=== PATIENT | female | born 1990 | race African-American/Black ===

== ENCOUNTER 2018-01-23 11:01 | Inpatient (IN) | payer BC ==
[2018-01-23] MEDS ORDERED: Sodium Chloride 0.9% 2.5 ML Syringe FLUSH PRN ×2 (12:22→17:15)
[2018-01-23] MEDS ORDERED: Misoprostol 200 MCG Tab PO PRN (12:22)
[2018-01-23] MEDS ORDERED: Carboprost Tromethamine 250 MCG/1 ML Amp IM PRN (12:22)
[2018-01-23] MEDS ORDERED: Methylergonovine 0.2 MG/1 ML Amp IM PRN (12:22)
[2018-01-23] MEDS ORDERED: Lidocaine 1% 50 ML MDV INJECT PRN (12:22)
[2018-01-23] MEDS ORDERED: Butorphanol 1 MG/ML SDV IVPUSH PRN (12:22)
[2018-01-23] MEDS ORDERED: Nalbuphine 10 MG/ML 10 ML MDV IVPUSH PRN (12:22)
[2018-01-23] MEDS ORDERED: Water For Irrigation,Sterile 1,000 ML Container IRR PRN (12:22)
[2018-01-23] MEDS ORDERED: Tranexamic Acid 1,000 MG in Sodium Chloride 0.9% 100 ML IV PRN (12:22)
[2018-01-23] MEDS ORDERED: Sodium Chloride 0.9% 10 ML Syringe FLUSH PRN ×2 (12:22→17:15)
[2018-01-23] MEDS ORDERED: Lactated Ringers 1,000 ML IV SCH ×3 (12:30→18:15)
[2018-01-23] MEDS ORDERED: Oxytocin/0.9 % Sodium Chloride 30 UNIT/500 ML BAG IV SCH ×2 (12:30→17:15)
--- NOTE | 2018-01-23 13:56 | PCM.LDHP ---
L&D History of Present Illness - General Date of Service: 01/23/18 Admit Problem/Dx: Patient Status Order with Admit Dx/Problem 01/23/18 12:22 Patient Status [ADT] Routine Admission Diagnosis/Problem Admission Diagnosis/Problem Planned Source of Information: Patient History Limitations: Reports: No Limitations - History of Present Illness Improves with: Reports: None Worsens with: Reports: None Associated Symptoms: Reports: N - Related Data Allergies/Adverse Reactions: Allergies Allergy/AdvReac Type Severity Reaction Status Date / Time No Known Allergies Allergy Verified 01/23/18 11:36 Home Medications: Home Meds Pnv No.95/Ferrous Fum/Folic AC [ Multivitamin Tablet] 1 each PO DAILY [History] Past Medical History - Past Health History Medical/Surgical History: Denies 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 OB/BYN History: delivered 03/31/2016 Psychiatric History: Reports: Anxiety, Depression - Infectious Disease History Infectious Disease History: Reports: Chicken Pox Social & Family History - Family History HEENT: Reports: None Cardiac: Reports: Hypertension OBGYN: Reports: None Musculoskeletal: Reports: None Neurological: Reports: None Endocrine/Metabolic: Reports: Diabetes, type II - Tobacco Use Smoking Status *Q: Never Smoker Second Hand Smoke Exposure: No - Caffeine Use Caffeine Use: Reports: None - Recreational Drug Use Recreational Drug Use: No H&P Review of Systems - Review of Systems: Review Of Systems: See Below General: Reports: No Symptoms HEENT: Reports: No Symptoms Pulmonary: Reports: No Symptoms Cardiovascular: Reports: No Symptoms Gastrointestinal: Reports: No Symptoms Genitourinary: Reports: No Symptoms Musculoskeletal: Reports: No Symptoms Skin: Reports: No Symptoms Psychiatric: Reports: No Symptoms Neurological: Reports: No Symptoms Hematologic/Lymphatic: Reports: No Symptoms Immunologic: Reports: No Symptoms L&D Exam - Exam Exam: See Below - Vital Signs Weight: 92.533 kg - OB Specific Contraction Intensity: Moderate Movement: Active Heart Tones: Present Presentation: Vertex - Valentine Score Valentine Score Cervix Position: Midposition Valentine Score Consistency: Medium Valentine Score Effacement: 51-70% Valentine Score Dilation: 3-4 cm Valentine Score Infant's Station: -2 Valentine Score Total: 7 - Exam General: Alert, Oriented HEENT: PERRLA, Conjunctiva Clear, EACs Clear, EOMI, Hearing Intact, Mucosa Moist & [place], Nares Patent, Normal Nasal Septum, Posterior Pharynx Clear, TMs Clear Neck: Supple, Trachea Midline Lungs: Clear to Auscultation, Normal Respiratory Effort Cardiovascular: Regular Rate, Regular Rhythm GI/Abdominal Exam: Normal Bowel Sounds, Soft, Non-Tender, No Organomegaly, No Distention, No Abnormal Bruit, No Mass, Pelvis Stable Rectal Exam: Normal Exam, Normal Rectal Tone Genitourinary: Normal external exam, Normal bimanual exam, Normal speculum exam Back Exam: Normal Inspection, Full Range of Motion Extremities: Normal Inspection, Normal Range of Motion, Non-Tender, No Pedal Edema, Normal Capillary Refill Skin: Warm, Dry, Intact Neurological: Cranial Nerves Intact, Reflexes Equal Bilateral Psychiatric: Alert, Normal Affect, Normal Mood - Patient Data Lab Results Last 24 hrs: Laboratory Results - last 24 hr 01/23/18 01/23/18 Range/Units 12:55 12:55 WBC 8.42 (4.0-11.0) K/uL RBC 4.35 (4.30-5.90) M/uL Hgb 13.5 (12.0-16.0) g/dL Hct 38.5 (36.0-46.0) % MCV 88.5 (80.0-98.0) fL MCH 31.0 (27.0-32.0) pg MCHC 35.1 (31.0-37.0) g/dL RDW Std Deviation 44.5 (28.0-62.0) fl RDW Coeff of Mk 14 (11.0-15.0) % Plt Count 142 L (150-400) K/uL MPV 11.10 (7.40-12.00) fL Nucleated RBC % 0.0 /100WBC Nucleated RBCs # 0 K/uL Blood Type O POSITIVE Antibody Screen NEGATIVE Result Diagrams: 01/23/18 12:55 Problem List Initiated/Reviewed/Updated: Yes Orders Last 24hrs: Active Orders 24 hr Category Date Time Status Patient Status [ADT] Routine ADT 01/23/18 12:22 Active Heart Tones [RC] CONTINUOUS Care 01/23/18 12:22 Active Non Stress Test [RC] PER UNIT ROUTINE Care 01/23/18 12:22 Active May Shower [RC] ASDIRECTED Care 01/23/18 12:22 Active Notify Provider [RC] PRN Care 01/23/18 12:22 Active Up ad Toshia [RC] ASDIRECTED Care 01/23/18 12:22 Active Vaginal Exam [RC] PRN Care 01/23/18 12:22 Active Vital Signs [RC] PER UNIT ROUTINE Care 01/23/18 12:22 Active Butorphanol [Stadol] Med 01/23/18 12:22 Active 1 mg IVPUSH Q1H PRN Carboprost Tromethamine [Hemabate DS] Med 01/23/18 12:22 Active 250 mcg IM ASDIRECTED PRN Lactated Ringers [Ringers, Lactated] 1,000 ml Med 01/23/18 12:30 Active IV ASDIRECTED Lidocaine 1% [Xylocaine 1%] Med 01/23/18 12:22 Active 50 ml INJECT .ONCE PRN Methylergonovine [Methergine] Med 01/23/18 12:22 Active 0.2 mg IM ASDIRECTED PRN Misoprostol [Cytotec] Med 01/23/18 12:22 Active 200 mcg PO .ONCE PRN Nalbuphine [Nubain] Med 01/23/18 12:22 Active 10 mg IVPUSH Q1H PRN Oxytocin/0.9 % Sodium Chloride [Oxytocin 30 Unit/500 ML Med 01/23/18 12:30 Active -NS] 30 unit in 500 ml IV TITRATE Sodium Chloride 0.9% [Saline Flush] Med 01/23/18 12:22 Active 10 ml FLUSH ASDIRECTED PRN Sodium Chloride 0.9% [Saline Flush] Med 01/23/18 12:22 Active 2.5 ml FLUSH ASDIRECTED PRN Tranexamic Acid [Cyklokapron] 1,000 mg Med 01/23/18 12:22 Active Sodium Chloride 0.9% [Normal Saline] 100 ml IV ONETIME Water For Irrigation,Sterile [Sterile Water for Med 01/23/18 12:22 Active Irrigation] 1,000 ml IRR ASDIRECTED PRN Scalp Electrode [WOMSER] Per Unit Routine Oth 01/23/18 12:22 Ordered Peripheral IV Insertion Adult [OM.PC] Routine Oth 01/23/18 12:22 Ordered Resuscitation Status Routine Resus Stat 01/23/18 12:22 Ordered Medication Orders Butorphanol Tartrate (Stadol) 1 mg IVPUSH Q1H PRN PRN Reason: Pain Carboprost Tromethamine (Hemabate Ds) 250 mcg IM ASDIRECTED PRN PRN Reason: Post Hemorrhage Lactated Ringer's (Ringers, Lactated) 1,000 mls @ 150 mls/hr IV ASDIRECTED [facility] Last Admin: 01/23/18 13:22 Dose: 150 mls/hr Oxytocin/Sodium Chloride (Oxytocin 30 Unit/500 Ml-Ns) 30 unit in 500 mls @ 250 mls/hr IV TITRATE [facility] Tranexamic Acid 1,000 mg/ (Sodium Chloride) 110 mls @ 660 mls/hr IV ONETIME PRN PRN Reason: Bleeding Lidocaine HCl (Xylocaine 1%) 50 ml INJECT .ONCE PRN PRN Reason: Laceration repair Methylergonovine Maleate (Methergine) 0.2 mg IM ASDIRECTED PRN PRN Reason: Post Hemorrhage Misoprostol (Cytotec) 200 mcg PO .ONCE PRN PRN Reason: Post Hemorrhage Nalbuphine HCl (Nubain) 10 mg IVPUSH Q1H PRN PRN Reason: Pain (severe 7-10) Sodium Chloride (Saline Flush) 10 ml FLUSH ASDIRECTED PRN PRN Reason: Keep Vein Open Sodium Chloride (Saline Flush) 2.5 ml FLUSH ASDIRECTED PRN PRN Reason: Keep Vein Open Sterile Water (Sterile Water For Irrigation) 1,000 ml IRR ASDIRECTED PRN PRN Reason: delivery Assessment/Plan Comment:: P 4004 and a nearly labor she dilated to 4 cm 70 vertex at -2 woman admitted and artificial rupture of the membrane anticipating vaginal
[2018-01-23] MEDS ORDERED: Terbutaline 1 MG/ML SDV ONE ×2 (17:07→17:17)
[2018-01-23] MEDS: Terbutaline 1 MG/ML SDV SUBCUT SCH ×2 (17:09→17:16)
[2018-01-23] MEDS ORDERED: ceFAZolin 2 GM in Premix Bag 1 BAG IV ONE (17:15)
[2018-01-23] MEDS ORDERED: Citric Acid/Sodium Citrate Solution 30 ML Cup PO SCH (17:15)
[2018-01-23] MEDS ORDERED: Ondansetron 4 MG/2 ML SDV ONE (17:21)
[2018-01-23] MEDS ORDERED: Succinylcholine 200 MG/10 ML MDV ONE (17:21)
[2018-01-23] MEDS ORDERED: Rocuronium 10 MG/ML 10 ML Syringe ONE (17:21)
[2018-01-23] MEDS ORDERED: Propofol 200 MG/20 ML SDV ONE (17:22)
[2018-01-23] MEDS ORDERED: Midazolam 1 MG/ML 2 ML SDV ONE (17:22)
[2018-01-23] MEDS ORDERED: fentaNYL 250 MCG/5 ML SDV ONE (17:22)
[2018-01-23] MEDS ORDERED: Oxytocin 10 Units/1 ML SDV ONE (17:34)
[2018-01-23] MEDS ORDERED: HYDROmorphone 2 MG/ML SDV ONE (17:47)
[2018-01-23] MEDS ORDERED: Phenylephrine/Normal Saline 100 MCG/ML 10 ML Syringe ONE (17:50)
[2018-01-23] MEDS ORDERED: ePHEDrine 50 MG/ML SDV ONE (17:53)
[2018-01-23] MEDS ORDERED: Octyl 2-Cyanoacrylate 1 Tube ONE (17:56)
[2018-01-23] MEDS ORDERED: fentaNYL 100 MCG/2 ML SDV ONE (18:00)
[2018-01-23] MEDS ORDERED: Acetaminophen/oxyCODONE 325-5 MG Tab PO PRN (18:03)
[2018-01-23] MEDS ORDERED: Bisacodyl 10 MG Supp RECTAL PRN (18:03)
[2018-01-23] MEDS ORDERED: Ondansetron 4 MG/2 ML SDV IVPUSH PRN (18:03)
[2018-01-23] MEDS ORDERED: Lanolin 100% Cream 7 GM Tube TOP PRN (18:03)
[2018-01-23] MEDS ORDERED: diphenhydrAMINE 50 MG/ML SDV IVPUSH PRN (18:03)
--- NOTE | 2018-01-23 18:07 | PCM.OPNOTE ---
- General Post-Op/Procedure Note Date of Surgery/Procedure: 01/23/18 Operative Procedure(s): Primary C/section Pre Op Diagnosis: IUP 40wks Hakeem breech prsentation Post-Op Diagnosis: Same Anesthesia Technique: General ET Tube Primary Surgeon: Reed John Chicken Dresser: Bernardo Worley EBL in mLs: 700 Complications: None Condition: Good
[2018-01-23] MEDS: fentaNYL 100 MCG/2 ML SDV IVPUSH PRN ×4 (18:24→19:12)
[2018-01-23] MEDS ORDERED: Racepinephrine 2.25% 0.5 ML Neb Soln NEB ONE (18:26)
--- NOTE | 2018-01-23 18:37 | PCM.PREANE ---
Preanesthetic Assessment - Anesthesia/Transfusion/Family Hx Anesthesia History: No Prior Anesthesia Transfusion History: No Prior Transfusion(s) - Review of Systems General: No Symptoms Pulmonary: No Symptoms Cardiovascular: No Symptoms Gastrointestinal: No Symptoms Neurological: No Symptoms Other: Reports: None - Physical Assessment Height: 5 ft 7 in Weight: 92.533 kg ASA Class: 2E Mental Status: Alert & Oriented x3 Airway Class: Mallampati = 2 Dentition: Reports: Normal Dentition Thyro-Mental Finger Breadths: 3 Mouth Opening Finger Breadths: 3 ROM/Head Extension: Full Lungs: Clear to Auscultation, Normal Respiratory Effort Cardiovascular: Regular Rate, Regular Rhythm - Lab Values: Laboratory Last Values WBC 8.42 K/uL (4.0-11.0) 01/23/18 12:55 RBC 4.35 M/uL (4.30-5.90) 01/23/18 12:55 Hgb 13.5 g/dL (12.0-16.0) 01/23/18 12:55 Hct 38.5 % (36.0-46.0) 01/23/18 12:55 MCV 88.5 fL (80.0-98.0) 01/23/18 12:55 MCH 31.0 pg (27.0-32.0) 01/23/18 12:55 MCHC 35.1 g/dL (31.0-37.0) 01/23/18 12:55 RDW Std Deviation 44.5 fl (28.0-62.0) 01/23/18 12:55 RDW Coeff of Mk 14 % (11.0-15.0) 01/23/18 12:55 Plt Count 142 K/uL (150-400) L 01/23/18 12:55 MPV 11.10 fL (7.40-12.00) 01/23/18 12:55 Nucleated RBC % 0.0 /100WBC 01/23/18 12:55 Nucleated RBCs # 0 K/uL 01/23/18 12:55 Blood Type O POSITIVE 01/23/18 12:55 Antibody Screen NEGATIVE 01/23/18 12:55 - Allergies Allergies/Adverse Reactions: Allergies Allergy/AdvReac Type Severity Reaction Status Date / Time No Known Allergies Allergy Verified 01/23/18 11:36 - Anesthesia Plan Free Text/Narrative:: I spoke with the patient. I explained spinal vs general. Given the patients current progression and her lack of being able to participate in my questioning , general anesthesia was elected. Pt understood and wished to proceed. 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 OB/BYN History: delivered 03/31/2016 Musculoskeletal History: Reports: None Neurological History: Reports: None Psychiatric History: Reports: Anxiety, Depression Endocrine/Metabolic History: Reports: Obesity/BMI 30+ Hematologic History: Reports: None Immunologic History: Reports: None Oncologic (Cancer) History: Reports: None Dermatologic History: Reports: None - Infectious Disease History Infectious Disease History: Reports: Chicken Pox - SUBSTANCE USE Smoking Status *Q: Never Smoker Second Hand Smoke Exposure: No Recreational Drug Use History: No - HOME MEDS Home Medications: Home Meds Pnv No.95/Ferrous Fum/Folic AC [ Multivitamin Tablet] 1 each PO DAILY [History] - CURRENT (IN HOUSE) MEDS Current Meds: Current Medications Bisacodyl (Dulcolax) 10 mg RECTAL .ONCE PRN PRN Reason: Constipation Citric Acid/Sodium Citrate (Bicitra Solution) 30 ml PO .ONCE RAYMUNDO Diphenhydramine HCl (Benadryl) 25 mg IVPUSH Q6H PRN PRN Reason: Itching or Nausea Docusate Sodium (Colace) 100 mg PO BID RAYMUNDO Emollient Ointment (Lansinoh Hpa) 0 gm TOP ASDIRECTED PRN PRN Reason: Sore Nipples Fentanyl (Sublimaze) 50 mcg IVPUSH Q5M PRN PRN Reason: Pain (severe 7-10) Stop: 01/24/18 18:15 Lactated Ringer's (Ringers, Lactated) 1,000 mls @ 500 mls/hr IV .BOLUS RAYMUNDO Oxytocin/Sodium Chloride (Oxytocin 30 Unit/500 Ml-Ns) 30 unit in 500 mls @ 250 mls/hr IV TITRATE RAYMUNDO Lactated Ringer's (Ringers, Lactated) 1,000 mls @ 125 mls/hr IV ASDIRECTED [facility] Ibuprofen (Motrin) 800 mg PO Q8H PRN PRN Reason: mild pain or fever Ketorolac Tromethamine (Toradol) 30 mg IVPUSH Q6H RAYMUNDO Stop: 01/24/18 18:16 Ondansetron HCl (Zofran) 4 mg IVPUSH Q4H PRN PRN Reason: Nausea/Vomiting Oxycodone/Acetaminophen (Percocet 325-5 Mg) 1 tab PO Q4H PRN PRN Reason: Pain (moderate 4-6) Oxycodone/Acetaminophen (Percocet 325-5 Mg) 2 tab PO Q4H PRN PRN Reason: Pain (moderate 4-6) Sodium Chloride (Saline Flush) 10 ml FLUSH ASDIRECTED PRN PRN Reason: Keep Vein Open Sodium Chloride (Saline Flush) 2.5 ml FLUSH ASDIRECTED PRN PRN Reason: Keep Vein Open Terbutaline Sulfate (Brethine) 0.25 mg SUBCUT .ONCE [facility] Last Admin: 01/23/18 17:16 Dose: 1 mg Discontinued Medications Butorphanol Tartrate (Stadol) 1 mg IVPUSH Q1H PRN PRN Reason: Pain Carboprost Tromethamine (Hemabate Ds) 250 mcg IM ASDIRECTED PRN PRN Reason: Post Hemorrhage Ephedrine Sulfate (Ephedrine Sulfate) Confirm Administered Dose 50 mg .ROUTE .STK-MED ONE Stop: 01/23/18 17:54 Fentanyl (Sublimaze) Confirm Administered Dose 250 mcg .ROUTE .STK-MED ONE Stop: 01/23/18 17:23 Fentanyl (Sublimaze) Confirm Administered Dose 100 mcg .ROUTE .STK-MED ONE Stop: 01/23/18 18:01 Hydromorphone HCl (Dilaudid) Confirm Administered Dose 2 mg .ROUTE .STK-MED ONE Stop: 01/23/18 17:48 Lactated Ringer's (Ringers, Lactated) 1,000 mls @ 150 mls/hr IV ASDIRECTED [facility] Last Admin: 01/23/18 13:22 Dose: 150 mls/hr Oxytocin/Sodium Chloride (Oxytocin 30 Unit/500 Ml-Ns) 30 unit in 500 mls @ 250 mls/hr IV TITRATE RAYMUNDO Tranexamic Acid 1,000 mg/ (Sodium Chloride) 110 mls @ 660 mls/hr IV ONETIME PRN PRN Reason: Bleeding Cefazolin Sodium/Dextrose 2 gm (/ Premix) 50 mls @ 100 mls/hr IV ONETIME ONE Stop: 01/23/18 17:44 Lidocaine HCl (Xylocaine 1%) 50 ml INJECT .ONCE PRN PRN Reason: Laceration repair Methylergonovine Maleate (Methergine) 0.2 mg IM ASDIRECTED PRN PRN Reason: Post Hemorrhage Midazolam HCl (Versed 1 Mg/Ml) Confirm Administered Dose 2 mg .ROUTE .STK-MED ONE Stop: 01/23/18 17:23 Misoprostol (Cytotec) 200 mcg PO .ONCE PRN PRN Reason: Post Hemorrhage Nalbuphine HCl (Nubain) 10 mg IVPUSH Q1H PRN PRN Reason: Pain (severe 7-10) Octyl Cyanoacrylate (Dermabond Advance) Confirm Administered Dose 1 applic .ROUTE .STK-MED ONE Stop: 01/23/18 17:57 Ondansetron HCl (Zofran) Confirm Administered Dose 4 mg .ROUTE .STK-MED ONE Stop: 01/23/18 17:22 Oxytocin (Pitocin) Confirm Administered Dose 20 unit .ROUTE .STK-MED ONE Stop: 01/23/18 17:35 Phenylephrine HCl (Phenylephrine In Ns 100 Mcg/Ml) Confirm Administered Dose 1 mg .ROUTE .STK-MED ONE Stop: 01/23/18 17:51 Propofol (Diprivan 20 Ml) Confirm Administered Dose 200 mg .ROUTE .STK-MED ONE Stop: 01/23/18 17:23 Racepinephrine (S-2 2.25%) 0.5 ml NEB ONETIME ONE PRN Reason: Pain (severe 7-10) Stop: 01/23/18 18:27 Last Admin: 01/23/18 18:32 Dose: 0.5 ml Rocuronium Morrice (Zemuron) Confirm Administered Dose 100 mg .ROUTE .STK-MED ONE Stop: 01/23/18 17:22 Sodium Chloride (Saline Flush) 10 ml FLUSH ASDIRECTED PRN PRN Reason: Keep Vein Open Sodium Chloride (Saline Flush) 2.5 ml FLUSH ASDIRECTED PRN PRN Reason: Keep Vein Open Sterile Water (Sterile Water For Irrigation) 1,000 ml IRR ASDIRECTED PRN PRN Reason: delivery Succinylcholine Chloride (Quelicin) Confirm Administered Dose 200 mg .ROUTE .STK -MED ONE Stop: 01/23/18 17:22 Terbutaline Sulfate (Brethine) Confirm Administered Dose 1 mg .ROUTE .STK-MED ONE Stop: 01/23/18 17:08 Terbutaline Sulfate (Brethine) Confirm Administered Dose 1 mg .ROUTE .STK-MED ONE Stop: 01/23/18 17:18
--- NOTE | 2018-01-23 19:02 | PCM.POSTAN ---
POST ANESTHESIA ASSESSMENT - MENTAL STATUS Mental Status: Alert, Oriented - VITAL SIGNS Pulse Rate: 125 SaO2: 99 Blood Pressure: 100/58 - RESPIRATORY Respiratory Status: Respiratory Rate WNL, Airway Patent, O2 Saturation Stable - CARDIOVASCULAR CV Status: Pulse Rate WNL, Blood Pressure Stable - GASTROINTESTINAL GI Status: No Symptoms - POST OP HYDRATION Hydration Status: Adequate & Stable - OBSERVATIONS Free Text/Narrative:: On arrival to PACU patient was awake and having audible stridor from her upper airway. Racepinephrine neb treatment was given and the patient states her breathing is much better.
[2018-01-23] MEDS: Ketorolac 30 MG/ML SDV IVPUSH SCH (19:57)
--- NOTE | 2018-01-23 20:15 | OR ---
SURGEON: Reed John MD DATE OF PROCEDURE: 01/23/2018 PREOPERATIVE DIAGNOSES: 1. Intrauterine . 2. Active labor at term. 3. Breech presentation. POSTOPERATIVE DIAGNOSES: 1. Intrauterine . 2. Active labor at term. 3. Breech presentation. OPERATION PERFORMED: Emergency low transverse section under general anesthesia. LEAD JAVASCRIPT DEVELOPER: Bernardo Worley MD ANESTHESIA: General. ANESTHESIOLOGIST: Rob Mcclellan and Malik Vázquez M.D. ESTIMATED BLOOD LOSS: 750 mL. COMPLICATIONS: None. STUDIO OPERATIONS ENGINEER IN CHARGE: Laureen Zarate MD FINDINGS: Fetus in a juancarlos breech presentation. scores reported to be 6 and 9. Normal uterus, tubes, and ovaries. INDICATION FOR SURGERY: This patient is term. She is followed in our clinic. She was admitted in active labor when she was about 3 to 4 cm, and she had artificial rupture of the membranes by me about 3 to 4 cm at that time thinking that she was in vertex presentation. Later on when she progressed to about 8 cm and the patient started pushing, examination confirmed that the patient in the juancarlos presentation, so emergent section was performed. PROCEDURE IN DETAIL: The patient was brought to the OR and properly identified. After the patient was prepped and draped in sterile fashion as usual and general anesthesia administered, a low transverse Pfannenstiel skin incision was done. Jossie's fascia and rectus fascia were opened in the direction of the incision. The 2 recti muscles were , and peritoneal cavity was entered. Low transverse uterine incision was done and extended manually with the hand. Fetus was in a juancarlos breech presentation, delivered without any problem, handed to Dr. Zarate who resuscitated the baby. The scores reported to be 6 and 9, and the weight is not available. The placenta delivered spontaneous, complete, and intact, and repair of the lower uterine segment was done with 2-0 Vicryl continuous interlocking in 2 layers. Reperitonealization done with 3-0 Vicryl continuous, and then the peritoneal cavity evacuated completely from all blood and blood clots and closed with 3-0 Vicryl continuous. The rectus fascia was closed with #1 PDS double strand continuous, the Jossie's fascia with 3-0 Vicryl continuous, and skin with skin clips, Insorb, and Dermabond. Instrument and sponge counts were correct. The patient tolerated the procedure well and went to recovery room in stable general condition. MERCEDES HUBBARD /[id number]
[2018-01-23] MEDS: Docusate Sodium 100 MG Cap PO SCH (23:00)
[2018-01-23] MEDS: Acetaminophen/oxyCODONE 325-5 MG Tab PO PRN (23:33)
[2018-01-24] MEDS: Ketorolac 30 MG/ML SDV IVPUSH SCH ×4 (02:06→20:15)
[2018-01-24] MEDS: Docusate Sodium 100 MG Cap PO SCH ×2 (08:10→20:15)
--- NOTE | 2018-01-24 09:35 | PCM48HPAN ---
Post Anesthesia Note - EVALUATION WITHIN 48HRS OF ANESTHETIC Vital Signs in Normal Range: Yes Patient Participated in Evaluation: Yes Respiratory Function Stable: Yes Airway Patent: Yes Cardiovascular Function Stable: Yes Hydration Status Stable: Yes Pain Control Satisfactory: Yes Nausea and Vomiting Control Satisfactory: Yes Mental Status Recovered: Yes Pulse Rate: 86 Resp Rate: 16 Blood Pressure: 114/71
[2018-01-25] MEDS ORDERED: Ibuprofen 800 MG Tab PO PRN (02:00)
[2018-01-25] MEDS: Docusate Sodium 100 MG Cap PO SCH (09:16)
[2018-01-25] MEDS: Acetaminophen/oxyCODONE 325-5 MG Tab PO PRN ×2 (09:16→12:41)
[2018-01-25 09:19] VITALS: BP 113/78
--- NOTE | 2018-01-25 10:14 | PCM.PNPP ---
- General Info Date of Service: 01/24/18 Functional Status: Reports: Pain Controlled - Review of Systems General: Reports: No Symptoms HEENT: Reports: No Symptoms Pulmonary: Reports: No Symptoms Cardiovascular: Reports: No Symptoms Gastrointestinal: Reports: No Symptoms Genitourinary: Reports: No Symptoms Musculoskeletal: Reports: No Symptoms Skin: Reports: No Symptoms Neurological: Reports: No Symptoms Psychiatric: Reports: No Symptoms - General Info Date of Service: 01/24/18 - Patient Data Vital Signs - Most Recent: Last Vital Signs Temp 36.6 C 01/25/18 09:19 Pulse 93 01/25/18 09:19 Resp 20 01/25/18 09:19 BP 113/78 01/25/18 09:19 Pulse Ox 99 01/25/18 09:19 Weight - Most Recent: 92.533 kg Med Orders - Current: Current Medications Bisacodyl (Dulcolax) 10 mg RECTAL .ONCE PRN PRN Reason: Constipation Citric Acid/Sodium Citrate (Bicitra Solution) 30 ml PO .ONCE RAYMUNDO Diphenhydramine HCl (Benadryl) 25 mg IVPUSH Q6H PRN PRN Reason: Itching or Nausea Docusate Sodium (Colace) 100 mg PO BID RAYMUNDO Last Admin: 01/25/18 09:16 Dose: 100 mg Emollient Ointment (Lansinoh Hpa) 0 gm TOP ASDIRECTED PRN PRN Reason: Sore Nipples Last Admin: 01/23/18 23:01 Dose: 7 gm Lactated Ringer's (Ringers, Lactated) 1,000 mls @ 500 mls/hr IV .[facility] Oxytocin/Sodium Chloride (Oxytocin 30 Unit/500 Ml-Ns) 30 unit in 500 mls @ 250 mls/hr IV TITRATE RAYMUNDO Lactated Ringer's (Ringers, Lactated) 1,000 mls @ 125 mls/hr IV ASDIRECTED RAYMUNDO Last Admin: 01/23/18 19:54 Dose: 125 mls/hr Ibuprofen (Motrin) 800 mg PO Q8H PRN PRN Reason: mild pain or fever Last Admin: 01/25/18 09:16 Dose: 800 mg Ondansetron HCl (Zofran) 4 mg IVPUSH Q4H PRN PRN Reason: Nausea/Vomiting Oxycodone/Acetaminophen (Percocet 325-5 Mg) 1 tab PO Q4H PRN PRN Reason: Pain (moderate 4-6) Last Admin: 01/25/18 09:16 Dose: 1 tab Oxycodone/Acetaminophen (Percocet 325-5 Mg) 2 tab PO Q4H PRN PRN Reason: Pain (moderate 4-6) Last Admin: 01/24/18 12:10 Dose: 2 tab Sodium Chloride (Saline Flush) 10 ml FLUSH ASDIRECTED PRN PRN Reason: Keep Vein Open Sodium Chloride (Saline Flush) 2.5 ml FLUSH ASDIRECTED PRN PRN Reason: Keep Vein Open Terbutaline Sulfate (Brethine) 0.25 mg SUBCUT .ONCE RAYMUNDO Last Admin: 01/23/18 17:16 Dose: 1 mg Discontinued Medications Butorphanol Tartrate (Stadol) 1 mg IVPUSH Q1H PRN PRN Reason: Pain Carboprost Tromethamine (Hemabate Ds) 250 mcg IM ASDIRECTED PRN PRN Reason: Post Hemorrhage Ephedrine Sulfate (Ephedrine Sulfate) Confirm Administered Dose 50 mg .ROUTE .STK-MED ONE Stop: 01/23/18 17:54 Fentanyl (Sublimaze) Confirm Administered Dose 250 mcg .ROUTE .STK-MED ONE Stop: 01/23/18 17:23 Fentanyl (Sublimaze) Confirm Administered Dose 100 mcg .ROUTE .STK-MED ONE Stop: 01/23/18 18:01 Fentanyl (Sublimaze) 50 mcg IVPUSH Q5M PRN PRN Reason: Pain (severe 7-10) Stop: 01/24/18 18:15 Last Admin: 01/23/18 19:12 Dose: 50 mcg Hydromorphone HCl (Dilaudid) Confirm Administered Dose 2 mg .ROUTE .STK-MED ONE Stop: 01/23/18 17:48 Lactated Ringer's (Ringers, Lactated) 1,000 mls @ 150 mls/hr IV ASDIRECTED RAYMUNDO Last Admin: 01/23/18 13:22 Dose: 150 mls/hr Oxytocin/Sodium Chloride (Oxytocin 30 Unit/500 Ml-Ns) 30 unit in 500 mls @ 250 mls/hr IV TITRATE RAYMUNDO Tranexamic Acid 1,000 mg/ (Sodium Chloride) 110 mls @ 660 mls/hr IV ONETIME PRN PRN Reason: Bleeding Cefazolin Sodium/Dextrose 2 gm (/ Premix) 50 mls @ 100 mls/hr IV ONETIME ONE Stop: 01/23/18 17:44 Last Admin: 01/23/18 19:41 Dose: Not Given Ketorolac Tromethamine (Toradol) 30 mg IVPUSH Q6H RAYMUNDO Stop: 01/24/18 20:01 Last Admin: 01/24/18 20:15 Dose: 30 mg Lidocaine HCl (Xylocaine 1%) 50 ml INJECT .ONCE PRN PRN Reason: Laceration repair Methylergonovine Maleate (Methergine) 0.2 mg IM ASDIRECTED PRN PRN Reason: Post Hemorrhage Midazolam HCl (Versed 1 Mg/Ml) Confirm Administered Dose 2 mg .ROUTE .STK-MED ONE Stop: 01/23/18 17:23 Misoprostol (Cytotec) 200 mcg PO .ONCE PRN PRN Reason: Post Hemorrhage Nalbuphine HCl (Nubain) 10 mg IVPUSH Q1H PRN PRN Reason: Pain (severe 7-10) Octyl Cyanoacrylate (Dermabond Advance) Confirm Administered Dose 1 applic .ROUTE .STK-MED ONE Stop: 01/23/18 17:57 Ondansetron HCl (Zofran) Confirm Administered Dose 4 mg .ROUTE .STK-MED ONE Stop: 01/23/18 17:22 Oxytocin (Pitocin) Confirm Administered Dose 20 unit .ROUTE .STK-MED ONE Stop: 01/23/18 17:35 Phenylephrine HCl (Phenylephrine In Ns 100 Mcg/Ml) Confirm Administered Dose 1 mg .ROUTE .STK-MED ONE Stop: 01/23/18 17:51 Propofol (Diprivan 20 Ml) Confirm Administered Dose 200 mg .ROUTE .STK-MED ONE Stop: 01/23/18 17:23 Racepinephrine (S-2 2.25%) 0.5 ml NEB ONETIME ONE PRN Reason: Pain (severe 7-10) Stop: 01/23/18 18:27 Last Admin: 01/23/18 18:32 Dose: 0.5 ml Rocuronium [place] (Zemuron) Confirm Administered Dose 100 mg .ROUTE .STK-MED ONE Stop: 01/23/18 17:22 Sodium Chloride (Saline Flush) 10 ml FLUSH ASDIRECTED PRN PRN Reason: Keep Vein Open Sodium Chloride (Saline Flush) 2.5 ml FLUSH ASDIRECTED PRN PRN Reason: Keep Vein Open Sterile Water (Sterile Water For Irrigation) 1,000 ml IRR ASDIRECTED PRN PRN Reason: delivery Succinylcholine Chloride (Quelicin) Confirm Administered Dose 200 mg .ROUTE .STK -MED ONE Stop: 01/23/18 17:22 Terbutaline Sulfate (Brethine) Confirm Administered Dose 1 mg .ROUTE .STK-MED ONE Stop: 01/23/18 17:08 Terbutaline Sulfate (Brethine) Confirm Administered Dose 1 mg .ROUTE .STK-MED ONE Stop: 01/23/18 17:18 Last Admin: 01/23/18 19:42 Dose: Not Given - Interaction Infant Disposition, : [place] in Room with Family Infant Interaction: Holding Infant Feeding: Attempted ; Nursed Fair/Poor Support Person: , Significant Other - Recovery Exam Fundal Tone: Firm Fundal Level: At Umbilicus Fundal Placement: Midline Lochia Amount: Scant Lochia Color: Rubra/Red Perineum Description: Intact, Minimal Bruising/Swelling Episiotomy/Laceration: Approximated Bladder Status: Voiding Urinary Elimination: Indwelling Catheter - Exam General: Alert, Oriented HEENT: Pupils Equal Neck: Supple Lungs: Clear to Auscultation, Normal Respiratory Effort Cardiovascular: Regular Rate, Regular Rhythm GI/Abdominal Exam: Normal Bowel Sounds, Soft, Non-Tender, No Organomegaly, No Distention, No Abnormal Bruit, No Mass, Pelvis Stable Extremities: Normal Inspection, Normal Range of Motion, Non-Tender, No Pedal Edema, Normal Capillary Refill Skin: Warm, Dry, Intact Wound/Incisions: Healing Well Neurological: No New Focal Deficit Psy/Mental Status: Alert, Normal Affect, Normal Mood - Problem List Review Problem List Initiated/Reviewed/Updated: Yes - My Orders Last 24 Hours: My Active Orders 01/25/18 02:00 Ibuprofen [Motrin] 800 mg PO Q8H PRN - Plan Plan:: P 4004 and a nearly labor she dilated to 4 cm 70 vertex at -2 woman admitted and artificial rupture of the membrane anticipating vaginal
--- NOTE | 2018-01-25 12:22 | PCM.DCSUM1 ---
Discharge Summary - Hospital Course Diagnosis: Stroke: No - Discharge Data Discharge Date: 01/25/18 Discharge Disposition: Home, Self-Care 01 Condition: Good - Patient Summary/Data Operative Procedure(s) Performed: Primary C/section - Patient Instructions Diet: Usual Diet as Tolerated Showering/Bathing: November Shower Wound/Incision Care: Keep Operative Site/Wound Site Clean and Dry Notify Provider of: Fever - Discharge Plan Home Medications: Home Meds Pnv No.95/Ferrous Fum/Folic AC [ Multivitamin Tablet] 1 each PO DAILY [History] Referrals: [facility] [Outside] Maria D Davis CNM [Mid-] - ( week- February 02 @ 8:30am w/ Maria D Davis week- March 06 @ 10:45am w/ Maria D Davis) - General Info Date of Service: 01/25/18 Functional Status: Reports: Pain Controlled - Review of Systems General: Reports: No Symptoms HEENT: Reports: No Symptoms Pulmonary: Reports: No Symptoms Cardiovascular: Reports: No Symptoms Gastrointestinal: Reports: No Symptoms Genitourinary: Reports: No Symptoms Musculoskeletal: Reports: No Symptoms Skin: Reports: No Symptoms Neurological: Reports: No Symptoms Psychiatric: Reports: No Symptoms - Patient Data Vitals - Most Recent: Last Vital Signs Temp 36.6 C 01/25/18 09:19 Pulse 93 01/25/18 09:19 Resp 20 01/25/18 09:19 BP 113/78 01/25/18 09:19 Pulse Ox 99 01/25/18 09:19 Weight - Most Recent: 92.533 kg Med Orders - Current: Current Medications Bisacodyl (Dulcolax) 10 mg RECTAL .ONCE PRN PRN Reason: Constipation Citric Acid/Sodium Citrate (Bicitra Solution) 30 ml PO .ONCE RAYMUNDO Diphenhydramine HCl (Benadryl) 25 mg IVPUSH Q6H PRN PRN Reason: Itching or Nausea Docusate Sodium (Colace) 100 mg PO BID RAYMUNDO Last Admin: 01/25/18 09:16 Dose: 100 mg Emollient Ointment (Lansinoh Hpa) 0 gm TOP ASDIRECTED PRN PRN Reason: Sore Nipples Last Admin: 01/23/18 23:01 Dose: 7 gm Lactated Ringer's (Ringers, Lactated) 1,000 mls @ 500 mls/hr IV .BOLUS RAYMUNDO Oxytocin/Sodium Chloride (Oxytocin 30 Unit/500 Ml-Ns) 30 unit in 500 mls @ 250 mls/hr IV TITRATE RAYMUNDO Lactated Ringer's (Ringers, Lactated) 1,000 mls @ 125 mls/hr IV ASDIRECTED RAYMUNDO Last Admin: 01/23/18 19:54 Dose: 125 mls/hr Ibuprofen (Motrin) 800 mg PO Q8H PRN PRN Reason: mild pain or fever Last Admin: 01/25/18 09:16 Dose: 800 mg Ondansetron HCl (Zofran) 4 mg IVPUSH Q4H PRN PRN Reason: Nausea/Vomiting Oxycodone/Acetaminophen (Percocet 325-5 Mg) 1 tab PO Q4H PRN PRN Reason: Pain (moderate 4-6) Last Admin: 01/25/18 09:16 Dose: 1 tab Oxycodone/Acetaminophen (Percocet 325-5 Mg) 2 tab PO Q4H PRN PRN Reason: Pain (moderate 4-6) Last Admin: 01/24/18 12:10 Dose: 2 tab Sodium Chloride (Saline Flush) 10 ml FLUSH ASDIRECTED PRN PRN Reason: Keep Vein Open Sodium Chloride (Saline Flush) 2.5 ml FLUSH ASDIRECTED PRN PRN Reason: Keep Vein Open Terbutaline Sulfate (Brethine) 0.25 mg SUBCUT .ONCE RAYMUNDO Last Admin: 01/23/18 17:16 Dose: 1 mg Discontinued Medications Butorphanol Tartrate (Stadol) 1 mg IVPUSH Q1H PRN PRN Reason: Pain Carboprost Tromethamine (Hemabate Ds) 250 mcg IM ASDIRECTED PRN PRN Reason: Post Hemorrhage Ephedrine Sulfate (Ephedrine Sulfate) Confirm Administered Dose 50 mg .ROUTE .STK-MED ONE Stop: 01/23/18 17:54 Fentanyl (Sublimaze) Confirm Administered Dose 250 mcg .ROUTE .STK-MED ONE Stop: 01/23/18 17:23 Fentanyl (Sublimaze) Confirm Administered Dose 100 mcg .ROUTE .STK-MED ONE Stop: 01/23/18 18:01 Fentanyl (Sublimaze) 50 mcg IVPUSH Q5M PRN PRN Reason: Pain (severe 7-10) Stop: 01/24/18 18:15 Last Admin: 01/23/18 19:12 Dose: 50 mcg Hydromorphone HCl (Dilaudid) Confirm Administered Dose 2 mg .ROUTE .STK-MED ONE Stop: 01/23/18 17:48 Lactated Ringer's (Ringers, Lactated) 1,000 mls @ 150 mls/hr IV ASDIRECTED [facility] Last Admin: 01/23/18 13:22 Dose: 150 mls/hr Oxytocin/Sodium Chloride (Oxytocin 30 Unit/500 Ml-Ns) 30 unit in 500 mls @ 250 mls/hr IV TITRATE [facility] Tranexamic Acid 1,000 mg/ (Sodium Chloride) 110 mls @ 660 mls/hr IV ONETIME PRN PRN Reason: Bleeding Cefazolin Sodium/Dextrose 2 gm (/ Premix) 50 mls @ 100 mls/hr IV ONETIME ONE Stop: 01/23/18 17:44 Last Admin: 01/23/18 19:41 Dose: Not Given Ketorolac Tromethamine (Toradol) 30 mg IVPUSH Q6H [facility] Stop: 01/24/18 20:01 Last Admin: 01/24/18 20:15 Dose: 30 mg Lidocaine HCl (Xylocaine 1%) 50 ml INJECT .ONCE PRN PRN Reason: Laceration repair Methylergonovine Maleate (Methergine) 0.2 mg IM ASDIRECTED PRN PRN Reason: Post Hemorrhage Midazolam HCl (Versed 1 Mg/Ml) Confirm Administered Dose 2 mg .ROUTE .STK-MED ONE Stop: 01/23/18 17:23 Misoprostol (Cytotec) 200 mcg PO .ONCE PRN PRN Reason: Post Hemorrhage Nalbuphine HCl (Nubain) 10 mg IVPUSH Q1H PRN PRN Reason: Pain (severe 7-10) Octyl Cyanoacrylate (Dermabond Advance) Confirm Administered Dose 1 applic .ROUTE .STK-MED ONE Stop: 01/23/18 17:57 Ondansetron HCl (Zofran) Confirm Administered Dose 4 mg .ROUTE .STK-MED ONE Stop: 01/23/18 17:22 Oxytocin (Pitocin) Confirm Administered Dose 20 unit .ROUTE .STK-MED ONE Stop: 01/23/18 17:35 Phenylephrine HCl (Phenylephrine In Ns 100 Mcg/Ml) Confirm Administered Dose 1 mg .ROUTE .STK-MED ONE Stop: 01/23/18 17:51 Propofol (Diprivan 20 Ml) Confirm Administered Dose 200 mg .ROUTE .STK-MED ONE Stop: 01/23/18 17:23 Racepinephrine (S-2 2.25%) 0.5 ml NEB ONETIME ONE PRN Reason: Pain (severe 7-10) Stop: 01/23/18 18:27 Last Admin: 01/23/18 18:32 Dose: 0.5 ml Rocuronium [place] (Zemuron) Confirm Administered Dose 100 mg .ROUTE .STK-MED ONE Stop: 01/23/18 17:22 Sodium Chloride (Saline Flush) 10 ml FLUSH ASDIRECTED PRN PRN Reason: Keep Vein Open Sodium Chloride (Saline Flush) 2.5 ml FLUSH ASDIRECTED PRN PRN Reason: Keep Vein Open Sterile Water (Sterile Water For Irrigation) 1,000 ml IRR ASDIRECTED PRN PRN Reason: delivery Succinylcholine Chloride (Quelicin) Confirm Administered Dose 200 mg .ROUTE .STK -MED ONE Stop: 01/23/18 17:22 Terbutaline Sulfate (Brethine) Confirm Administered Dose 1 mg .ROUTE .STK-MED ONE Stop: 01/23/18 17:08 Terbutaline Sulfate (Brethine) Confirm Administered Dose 1 mg .ROUTE .STK-MED ONE Stop: 01/23/18 17:18 Last Admin: 01/23/18 19:42 Dose: Not Given - Exam General: Reports: Alert, Oriented HEENT: Reports: Pupils Equal, Pupils Reactive, EOMI, Mucous Membr. Moist/[place] Neck: Reports: Supple Lungs: Reports: Clear to Auscultation, Normal Respiratory Effort Cardiovascular: Reports: Regular Rate, Regular Rhythm GI/Abdominal Exam: Normal Bowel Sounds, Soft, Non-Tender, No Organomegaly, No Distention, No Abnormal Bruit, No Mass, Pelvis Stable (Female) Exam: Normal External Exam, Normal Speculum Exam, Normal Bimanual Exam Rectal (Female) Exam: Normal Exam, Normal Rectal Tone Back Exam: Reports: Normal Inspection, Full Range of Motion Extremities: Normal Inspection, Normal Range of Motion, Non-Tender, No Pedal Edema, Normal Capillary Refill Skin: Reports: Warm, Dry, Intact Wound/Incisions: Reports: Healing Well Neurological: Reports: No New Focal Deficit Psy/Mental Status: Reports: Alert, Normal Affect, Normal Mood
== END 2018-01-25 14:15 | disposition home or self-care (01) | DRG 540 ==
LOC: MW.OBCHECK 11:01 → MW.OB 11:06 → OBSVTOIN 17:39 → MW.OB 01-24 00:49
PROVIDERS: ADMIT Obstetrics & Gynecology; ATTEND Obstetrics & Gynecology
PROC: 10D00Z1 Extraction of Products of Conception, Low, Open Approach (ICD-10-PCS; principal; 2018-01-23)
PROC: 10907ZC Drainage of Amniotic Fluid, Therapeutic from Products of Conception, Via Natural or Artificial Opening (ICD-10-PCS; 2018-01-23)
DX: O32.1XX0 Maternal care for breech presentation, not applicable or unspecified (principal); Z3A.40 40 weeks gestation of pregnancy; Z37.0 Single live birth
CPT/HCPCS: 36415; 51702; 59025; 85014; 85018; 85027; 86850; 86900; 86901; 94640; A9270-GY; J0330; J1170; J1885; J2250; J2405; J2590; J2704; J3010; J3105; J7120

== ENCOUNTER 2019-01-27 12:09 | Emergency (ER) | payer BC, OTHER ==
[2019-01-27] MEDS ORDERED: LORazepam 1 MG Tab PO ONE (12:13)
[2019-01-27] MEDS ORDERED: Sodium Chloride 0.9% 10 ML Syringe FLUSH PRN (12:17)
[2019-01-27] MEDS ORDERED: Sodium Chloride 0.9% 2.5 ML Syringe FLUSH PRN (12:17)
[2019-01-27] MEDS ORDERED: Ketorolac 30 MG/ML SDV IVPUSH ONE (12:25)
--- NOTE | 2019-01-27 13:07 | EDM.PDOC ---
ED HPI GENERAL MEDICAL PROBLEM - General Chief Complaint: Chest Pain Stated Complaint: CHEST PAIN Time Seen by Provider: 01/27/19 12:17 Source of Information: Reports: Patient History Limitations: Reports: No Limitations - History of Present Illness INITIAL COMMENTS - FREE TEXT/NARRATIVE: History of present illness: []Patient started having pleuritic chest pain last night lasting 5-6 minutes. She was able to sleep but she woke up at 5 AM with repeat episodes that continued Review of systems: As per history of present illness and below otherwise all systems reviewed and negative. Past medical history: As per history of present illness and as reviewed below otherwise noncontributory. Surgical history: As per history of present illness and as reviewed below otherwise noncontributory. Social history: No reported history of drug or alcohol abuse. Family history: As per history of present illness and as reviewed below otherwise noncontributory. Physical exam: General: Well developed, well nourished in NAD HEENT: Atraumatic, normocephalic, pupils reactive, negative for conjunctival pallor or scleral icterus, mucous membranes moist, throat clear, neck supple, nontender, trachea midline. Lungs: Clear to auscultation, breath sounds equal bilaterally, chest nontender. Heart: S1S2, regular, negative for clicks, rubs, or JVD. Abdomen: NABS, Soft, nondistended, nontender. Negative for masses or hepatosplenomegaly. Negative for costovertebral tenderness. Pelvis: Stable nontender. Genitourinary: Deferred. Rectal: Deferred. Extremities: Atraumatic, negative for cords or calf pain. Neurovascular unremarkable. Neuro: Awake, alert, oriented. Cranial nerves II through XII unremarkable. Cerebellum unremarkable. Motor and sensory unremarkable throughout. Exam nonfocal. Skin:warm and dry Diagnostics: EKG, CBC, chemistry, chest x-ray, d-dimer, TSH, troponin, hCG all negative Therapeutics: Ativan, Toradol ED Course: Stable Impression: Chest pain, anxiety Prescriptions: None Plan: Follow-up with primary care Definitive disposition and diagnosis as appropriate pending reevaluation and review of above. 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 AIR VALVE REPAIRER History: delivered 03/31/2016 Musculoskeletal History: Reports: None Neurological History: Reports: None Psychiatric History: Reports: Anxiety, Depression Endocrine/Metabolic History: Reports: Obesity/BMI 30+ Hematologic History: Reports: None Immunologic History: Reports: None Oncologic (Cancer) History: Reports: None Dermatologic History: Reports: None - Infectious Disease History Infectious Disease History: Reports: None Social & Family History - Family History HEENT: Reports: None Cardiac: Reports: Hypertension OBGYN: Reports: None Musculoskeletal: Reports: None Neurological: Reports: None Endocrine/Metabolic: Reports: Diabetes, type II - Tobacco Use Smoking Status *Q: Never Smoker - Caffeine Use Caffeine Use: Reports: None - Recreational Drug Use Recreational Drug Use: No ED ROS GENERAL - Review of Systems Review Of Systems: See Below ED EXAM, GENERAL - Physical Exam Exam: See Below Course - Vital Signs Last Recorded V/S: Last Vital Signs Temp 97.3 F 01/27/19 12:21 Pulse 67 01/27/19 12:21 Resp 18 01/27/19 12:21 BP 123/89 01/27/19 12:21 Pulse Ox 99 01/27/19 12:21 - Orders/Labs/Meds Orders: Active Orders 24 hr Category Date Time Status EKG Documentation Completion [RC] STAT Care 01/27/19 12:17 Active Chest 1V Frontal [CR] Stat Exams 01/27/19 12:18 Taken Sodium Chloride 0.9% [Saline Flush] Med 01/27/19 12:17 Active 10 ml FLUSH ASDIRECTED PRN Sodium Chloride 0.9% [Saline Flush] Med 01/27/19 12:17 Active 2.5 ml FLUSH ASDIRECTED PRN Saline Lock Insert [OM.PC] Stat Oth 01/27/19 12:17 Ordered Medication Orders Sodium Chloride (Saline Flush) 10 ml FLUSH ASDIRECTED PRN PRN Reason: Keep Vein Open Last Admin: 01/27/19 12:43 Dose: 10 ml Sodium Chloride (Saline Flush) 2.5 ml FLUSH ASDIRECTED PRN PRN Reason: Keep Vein Open Last Admin: 01/27/19 12:43 Dose: 2.5 ml Labs: Laboratory Tests 01/27/19 01/27/19 01/27/19 Range/Units 12:30 12:30 12:30 WBC 3.75 L (4.0-11.0) K/uL RBC 4.78 (4.30-5.90) M/uL Hgb 14.3 (12.0-16.0) g/dL Hct 40.9 (36.0-46.0) % MCV 85.6 (80.0-98.0) fL MCH 29.9 (27.0-32.0) pg MCHC 35.0 (31.0-37.0) g/dL RDW Std Deviation 40.0 (28.0-62.0) fl RDW Coeff of Mk 13 (11.0-15.0) % Plt Count 174 (150-400) K/uL MPV 12.30 H (7.40-12.00) fL Neut % (Auto) 33.7 L (48.0-80.0) % Lymph % (Auto) 54.4 H (16.0-40.0) % [place] % (Auto) 7.7 (0.0-15.0) % Eos % (Auto) 3.7 (0.0-7.0) % Baso % (Auto) 0.5 (0.0-1.5) % Neut # (Auto) 1.3 L (1.4-5.7) K/uL Lymph # (Auto) 2.0 (0.6-2.4) K/uL [place] # (Auto) 0.3 (0.0-0.8) K/uL Eos # (Auto) 0.1 (0.0-0.7) K/uL Baso # (Auto) 0.0 (0.0-0.1) K/uL Nucleated RBC % 0.0 /100WBC Nucleated RBCs # 0 K/uL D-Dimer, Quantitative (0.0-0.50) mg/L FEU Sodium 140 (136-145) mmol/L Potassium 4.1 (3.5-5.1) mmol/L Chloride 106 (98-107) mmol/L Carbon Dioxide 26.3 (21.0-32.0) mmol/L BUN 18 (7.0-18.0) mg/dL Creatinine 1.1 H (0.6-1.0) mg/dL Est Cr Clr Drug Dosing 71.92 mL/min Estimated GFR (MDRD) > 60.0 ml/min Glucose 86 (74-106) mg/dL Calcium 8.7 (8.5-10.1) mg/dL Total Bilirubin 0.5 (0.2-1.0) mg/dL AST 27 (15-37) IU/L ALT 21 (14-63) IU/L Alkaline Phosphatase 62 (46-116) U/L Troponin I < 0.050 (0.000-0.056) ng/mL Total Protein 6.9 (6.4-8.2) g/dL Albumin 3.3 L (3.4-5.0) g/dL Globulin 3.6 (2.6-4.0) g/dL Albumin/Globulin Ratio 0.9 (0.9-1.6) TSH 3rd Generation 0.97 (0.36-3.74) uIU/mL HCG, Qual NEGATIVE (NEG) 01/27/19 Range/Units 12:30 WBC (4.0-11.0) K/uL RBC (4.30-5.90) M/uL Hgb (12.0-16.0) g/dL Hct (36.0-46.0) % MCV (80.0-98.0) fL MCH (27.0-32.0) pg MCHC (31.0-37.0) g/dL RDW Std Deviation (28.0-62.0) fl RDW Coeff of Mk (11.0-15.0) % Plt Count (150-400) K/uL MPV (7.40-12.00) fL Neut % (Auto) (48.0-80.0) % Lymph % (Auto) (16.0-40.0) % [place] % (Auto) (0.0-15.0) % Eos % (Auto) (0.0-7.0) % Baso % (Auto) (0.0-1.5) % Neut # (Auto) (1.4-5.7) K/uL Lymph # (Auto) (0.6-2.4) K/uL [place] # (Auto) (0.0-0.8) K/uL Eos # (Auto) (0.0-0.7) K/uL Baso # (Auto) (0.0-0.1) K/uL Nucleated RBC % /100WBC Nucleated RBCs # K/uL D-Dimer, Quantitative 0.21 (0.0-0.50) mg/L FEU Sodium (136-145) mmol/L Potassium (3.5-5.1) mmol/L Chloride (98-107) mmol/L Carbon Dioxide (21.0-32.0) mmol/L BUN (7.0-18.0) mg/dL Creatinine (0.6-1.0) mg/dL Est Cr Clr Drug Dosing mL/min Estimated GFR (MDRD) ml/min Glucose (74-106) mg/dL Calcium (8.5-10.1) mg/dL Total Bilirubin (0.2-1.0) mg/dL AST (15-37) IU/L ALT (14-63) IU/L Alkaline Phosphatase (46-116) U/L Troponin I (0.000-0.056) ng/mL Total Protein (6.4-8.2) g/dL Albumin (3.4-5.0) g/dL Globulin (2.6-4.0) g/dL Albumin/Globulin Ratio (0.9-1.6) TSH 3rd Generation (0.36-3.74) uIU/mL HCG, Qual (NEG) Meds: Medications Generic Name Dose Route Start Last Admin Trade Name Freq PRN Reason Stop Dose Admin Sodium Chloride 10 ml 01/27/19 12:17 01/27/19 12:43 Saline Flush FLUSH 10 ml ASDIRECTED PRN Administration Keep Vein Open Sodium Chloride 2.5 ml 01/27/19 12:17 01/27/19 12:43 Saline Flush FLUSH 2.5 ml ASDIRECTED PRN Administration Keep Vein Open Discontinued Medications Generic Name Dose Route Start Last Admin Trade Name Freq PRN Reason Stop Dose Admin Ketorolac Tromethamine 30 mg 01/27/19 12:25 01/27/19 12:42 Toradol IVPUSH 01/27/19 12:26 30 mg ONETIME ONE Administration Lorazepam 1 mg 01/27/19 12:13 01/27/19 12:17 Ativan PO 01/27/19 12:14 1 mg ONETIME ONE Administration Departure - Departure Time of Disposition: 13:30 Disposition: Home, Self-Care 01 Condition: Good Clinical Impression: Anxiety reaction Referrals: PCP,Unknown [Primary Care Provider] - Forms: ED Department Discharge Additional Instructions: The following information is given to patients seen in the emergency department who are being discharged to home. This information is to outline your options for follow-up care. We provide all patients seen in our emergency department with a follow-up referral. The need for follow-up, as well as the timing and circumstances, are variable depending upon the specifics of your emergency department visit. If you don't have a primary care physician on staff, we will provide you with a referral. We always advise you to contact your personal physician following an emergency department visit to inform them of the circumstance of the visit and for follow-up with them and/or the need for any referrals to a consulting specialist. The emergency department will also refer you to a specialist when appropriate. This referral assures that you have the opportunity for follow-up care with a specialist. All of these measure are taken in an effort to provide you with optimal care, which includes your follow-up. Under all circumstances we always encourage you to contact your private physician who remains a resource for coordinating your care. When calling for follow-up care, please make the office aware that this follow-up is from your recent emergency room visit. If for any reason you are refused follow-up, please contact the [facility] Emergency Department at and asked to speak to the emergency department charge nurse. [facility] [address] [place] [address] - My Orders Last 24 Hours: My Active Orders 01/27/19 12:17 EKG Documentation Completion [RC] STAT Sodium Chloride 0.9% [Saline Flush] 10 ml FLUSH ASDIRECTED PRN Sodium Chloride 0.9% [Saline Flush] 2.5 ml FLUSH ASDIRECTED PRN Saline Lock Insert [OM.PC] Stat 01/27/19 12:18 Chest 1V Frontal [CR] Stat - Assessment/Plan Last 24 Hours: My Active Orders 01/27/19 12:17 EKG Documentation Completion [RC] STAT Sodium Chloride 0.9% [Saline Flush] 10 ml FLUSH ASDIRECTED PRN Sodium Chloride 0.9% [Saline Flush] 2.5 ml FLUSH ASDIRECTED PRN Saline Lock Insert [OM.PC] Stat 01/27/19 12:18 Chest 1V Frontal [CR] Stat
[2019-01-27 13:11] LABS: CHLORIDE,CL 106 mmol/L (98-107); SODIUM,NA 140 mmol/L (136-145)
[2019-01-27 13:49] VITALS: BP 127/84
--- NOTE | 2019-01-27 14:17 | CR ---
INDICATION: Dyspnea. FINDINGS: A portable AP upright view of the chest was obtained. The cardiac silhouette and pulmonary vasculature are within normal limits. The lungs are clear bilaterally. IMPRESSION: No evidence of acute pulmonary disease. Dictated by Sean Ramirez MD @ 01/27/2019 2:15:36 PM Dictated by: Sean Ramirez MD @ 01/27/2019 14:15:45 (Electronically Signed)
== END 2019-01-27 13:49 | disposition home or self-care (01) ==
LOC: MW.ED 12:09
DX: F41.9 Anxiety disorder, unspecified (principal); R07.81 Pleurodynia; E66.9 Obesity, unspecified; Z68.26 Body mass index [BMI] 26.0-26.9, adult
CPT/HCPCS: 36415; 71045; 80053; 84443; 84484; 84703; 85025; 85379; 93005; 96374; 99285; A9270; J1885; 99283

== ENCOUNTER 2020-09-08 15:43 | Emergency (ER) | payer SELFPAY ==
[2020-09-08] MEDS ORDERED: diphenhydrAMINE 50 MG/ML SDV IVPUSH ONE (16:04)
[2020-09-08] MEDS ORDERED: Metoclopramide 10 MG/2 ML SDV IVPUSH ONE (16:04)
--- NOTE | 2020-09-08 16:11 | EDM.PDOC ---
ED HPI GENERAL MEDICAL PROBLEM - General Chief Complaint: Headache Stated Complaint: bad headaches Time Seen by Provider: 09/08/20 15:45 Source of Information: Reports: Patient History Limitations: Reports: No Limitations - History of Present Illness INITIAL COMMENTS - FREE TEXT/NARRATIVE: Patient is a 30-year-old female who presents today for headache for the past 5 days. Pain states the headache is diffuse and irritated by light. Patient states she has tried [id number] medications without success. Patient denies any vision changes numbness weakness in the body altered mental status. Patient denies any neck pain as well. headache Pain Score (Numeric/FACES): 10 - Related Data Allergies Allergy/AdvReac Type Severity Reaction Status Date / Time No Known Allergies Allergy Verified 09/08/20 16:02 Home Meds: Home Meds . 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 Musculoskeletal History: Reports: None Neurological History: Reports: None Psychiatric History: Reports: Anxiety, Depression Endocrine/Metabolic History: Reports: Obesity/BMI 30+ Hematologic History: Reports: None Immunologic History: Reports: None Oncologic (Cancer) History: Reports: None Dermatologic History: Reports: None - Infectious Disease History Infectious Disease History: Reports: None Social & Family History - Family History HEENT: Reports: None Cardiac: Reports: Hypertension OBGYN: Reports: None Musculoskeletal: Reports: None Neurological: Reports: None Endocrine/Metabolic: Reports: Diabetes, type II - Caffeine Use Caffeine Use: Reports: None ED ROS GENERAL - Review of Systems Review Of Systems: See Below Constitutional: Reports: No Symptoms HEENT: Reports: No Symptoms Respiratory: Reports: No Symptoms Cardiovascular: Reports: No Symptoms Endocrine: Reports: No Symptoms GI/Abdominal: Reports: No Symptoms : Reports: No Symptoms Musculoskeletal: Reports: No Symptoms Skin: Reports: No Symptoms Neurological: Reports: Headache Psychiatric: Reports: No Symptoms Hematologic/Lymphatic: Reports: No Symptoms Immunologic: Reports: No Symptoms - Physical Exam Exam: See Below Exam Limited By: No Limitations General Appearance: Alert, WD/WN, No Apparent Distress Head Exam: Atraumatic, Normocephalic Respiratory/Chest: No Respiratory Distress, Lungs Clear, Normal Breath Sounds Cardiovascular: Normal Peripheral Pulses, Regular Rate, Rhythm GI/Abdominal: Normal Bowel Sounds, Soft, Non-Tender Neuro Exam (Abbreviated): Alert, Oriented, CN II-XII Intact, Normal Cognition, Normal Gait Extremities: Normal Inspection Course - Vital Signs Last Recorded V/S: Last Vital Signs Temp 97.4 F 09/08/20 15:59 Pulse 74 09/08/20 16:59 Resp 16 09/08/20 15:59 BP 125/84 09/08/20 16:59 Pulse Ox 97 09/08/20 16:59 - Orders/Labs/Meds Labs: Laboratory Tests 09/08/20 09/08/20 09/08/20 Range/Units 16:56 16:56 16:56 WBC 4.68 (4.0-11.0) K/uL RBC 5.19 (4.30-5.90) M/uL Hgb 16.0 (12.0-16.0) g/dL Hct 46.3 H (36.0-46.0) % MCV 89.2 (80.0-98.0) fL MCH 30.8 (27.0-32.0) pg MCHC 34.6 (31.0-37.0) g/dL RDW Std Deviation 41.4 (28.0-62.0) fl RDW Coeff of Mk 13 (11.0-15.0) % Plt Count 179 (150-400) K/uL MPV 12.20 H (7.40-12.00) fL Neut % (Auto) 53.9 (48.0-80.0) % Lymph % (Auto) 36.1 (16.0-40.0) % [place] % (Auto) 6.8 (0.0-15.0) % Eos % (Auto) 2.8 (0.0-7.0) % Baso % (Auto) 0.4 (0.0-1.5) % Neut # (Auto) 2.5 (1.4-5.7) K/uL Lymph # (Auto) 1.7 (0.6-2.4) K/uL [place] # (Auto) 0.3 (0.0-0.8) K/uL Eos # (Auto) 0.1 (0.0-0.7) K/uL Baso # (Auto) 0.0 (0.0-0.1) K/uL Nucleated RBC % 0.0 /100WBC Nucleated RBCs # 0 K/uL Sodium 141 (136-145) mmol/L Potassium 3.4 L (3.5-5.1) mmol/L Chloride 104 (98-107) mmol/L Carbon Dioxide 27.9 (21.0-32.0) mmol/L BUN 13 (7.0-18.0) mg/dL Creatinine 1.3 H (0.6-1.0) mg/dL Est Cr Clr Drug Dosing 59.77 mL/min Estimated GFR (MDRD) 58.7 ml/min Glucose 75 (74-106) mg/dL Calcium 8.9 (8.5-10.1) mg/dL Total Bilirubin 0.4 (0.2-1.0) mg/dL AST 18 (15-37) IU/L ALT 25 (14-63) IU/L Alkaline Phosphatase 70 (46-116) U/L Total Protein 7.7 (6.4-8.2) g/dL Albumin 3.6 (3.4-5.0) g/dL Globulin 4.1 H (2.6-4.0) g/dL Albumin/Globulin Ratio 0.9 (0.9-1.6) HCG, Qual NEGATIVE (NEG) Meds: Medications Discontinued Medications Generic Name Dose Route Start Last Admin Trade Name Freq PRN Reason Stop Dose Admin Diphenhydramine HCl 12.5 mg 09/08/20 16:04 09/08/20 16:54 Benadryl IVPUSH 09/08/20 16:05 12.5 mg ONETIME ONE Administration Metoclopramide HCl 10 mg 09/08/20 16:04 09/08/20 16:54 Reglan IVPUSH 09/08/20 16:05 10 mg ONETIME ONE Administration - Re-Assessments/Exams Free Text/Narrative Re-Assessment/Exam: 09/08/20 17:30 t's headache improved after the Reglan and Benadryl. Patient will be discharged home. Departure - Departure Time of Disposition: 17:30 Disposition: Home, Self-Care 01 Condition: Good Clinical Impression: Migraine - Discharge Information *PRESCRIPTION DRUG MONITORING PROGRAM REVIEWED*: Not Applicable *COPY OF PRESCRIPTION DRUG MONITORING REPORT IN PATIENT PRAVEEN: Not Applicable Instructions: Migraine Headache, [id number] Referrals: PCP,None [Primary Care Provider] - Forms: ED Department Discharge Additional Instructions: The following information is given to patients seen in the emergency department who are being discharged to home. This information is to outline your options for follow-up care. We provide all patients seen in our emergency department with a follow-up referral. The need for follow-up, as well as the timing and circumstances, are variable depending upon the specifics of your emergency department visit. If you don't have a primary care physician on staff, we will provide you with a referral. We always advise you to contact your personal physician following an emergency department visit to inform them of the circumstance of the visit and for follow-up with them and/or the need for any referrals to a consulting specialist. The emergency department will also refer you to a specialist when appropriate. This referral assures that you have the opportunity for follow-up care with a specialist. All of these measure are taken in an effort to provide you with optimal care, which includes your follow-up. Under all circumstances we always encourage you to contact your private physician who remains a resource for coordinating your care. When calling for follow-up care, please make the office aware that this follow-up is from your recent emergency room visit. If for any reason you are refused follow-up, please contact the [facility] Emergency Department at and asked to speak to the emergency department charge nurse. Please follow up with your primary care physician. If you do not have a primary care physician, see below: [facility] [address] [place] [id number] [facility] [address] [place] [id number] Follow-up one of the primary care physicians above. Increased headaches weakness or numbness in your body please return to the ED immediately. Sepsis Event Note (ED) - Evaluation Sepsis Screening Result: No Definite Risk - Focused Exam Vital Signs: Vital Signs Temp Pulse Resp BP Pulse Ox 09/08/20 16:59 74 125/84 97 09/08/20 15:59 97.4 F 89 16 135/82 98 - Assessment/Plan Plan: Patient is a 30-year-old female who presents today for headache for the past 5 days. Patient has no neurological deficit on examination. Will provide Reglan and Benadryl and reassess.
[2020-09-08 17:33] LABS: CARBON DIOXIDE,CO2 27.9 mmol/L (21.0-32.0); POTASSIUM,K 3.4 mmol/L (3.5-5.1)
[2020-09-08 18:05] VITALS: BP 111/70; PULSE 77
== END 2020-09-08 18:00 | disposition home or self-care (01) ==
LOC: MW.ED 15:43
DX: G43.909 Migraine, unspecified, not intractable, without status migrainosus (principal); E66.9 Obesity, unspecified; Z68.29 Body mass index [BMI] 29.0-29.9, adult
CPT/HCPCS: 36415; 80053; 84703; 85025; 96374; 96375; 99284; J1200; J2765; 99282

== ENCOUNTER 2021-05-08 17:27 | Emergency (ER) | payer OTHER, SELFPAY ==
[2021-05-08 17:35] VITALS: BP 125/82; PULSE 88
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
== END 2021-05-08 19:21 | disposition home or self-care (01) ==
LOC: MW.ED 17:27
DX: R51.9 Headache, unspecified (principal); M54.2 Cervicalgia; M25.512 Pain in left shoulder; E66.9 Obesity, unspecified; Z68.28 Body mass index [BMI] 28.0-28.9, adult; V49.49XA Driver injured in collision with other motor vehicles in traffic accident, initial encounter; Y92.410 Unspecified street and highway as the place of occurrence of the external cause
CPT/HCPCS: 70450; 70450-26; 71046; 71046-26; 72125; 72125-26; 73030-26-LT; 73030-LT; 99284-25

== ENCOUNTER 2022-01-21 15:34 | Emergency (ER) | payer BC ==
[2022-01-21] MEDS ORDERED: Sodium Chloride 0.9% 10 ML Syringe FLUSH PRN (16:55)
[2022-01-21] MEDS ORDERED: Sodium Chloride 0.9% 2.5 ML Syringe FLUSH PRN (16:55)
[2022-01-21] MEDS ORDERED: Morphine 4 MG/ML VIAL ONE (17:35)
[2022-01-21] MEDS ORDERED: Ondansetron 4 MG/2 ML SDV IVPUSH ONE (17:40)
[2022-01-21] MEDS ORDERED: Morphine 4 MG/ML VIAL IVPUSH ONE (17:44)
[2022-01-21 18:01] LABS: CARBON DIOXIDE,CO2 27.9 mmol/L (21.0-32.0); POTASSIUM,K 3.8 mmol/L (3.5-5.1)
[2022-01-21] MEDS ORDERED: Iopamidol 755 MG/ML 500 ML Multipack Bottle IVPUSH STA (18:19)
[2022-01-21 18:45] LABS: CORONAVIRUS COVID-19 NAA POSITIVE (NEGATIVE); INFLUENZA A NAA NEGATIVE (NEGATIVE); INFLUENZA B NAA NEGATIVE (NEGATIVE)
[2022-01-21] MEDS ORDERED: Sodium Chloride 0.9% 1,000 ML IV ONE (19:15)
[2022-01-21] MEDS ORDERED: Piperacillin/Tazobactam 3.375 GM in Sodium Chloride 0.9% 50 ML IV ONE (19:15)
[2022-01-22 01:08] VITALS: BP 133/68; PULSE 77
== END 2022-01-21 20:26 | disposition home or self-care (01) ==
LOC: MW.ED 15:34
DX: U07.1 COVID-19 (principal); K52.9 Noninfective gastroenteritis and colitis, unspecified; Z79.899 Other long term (current) drug therapy
CPT/HCPCS: 0240U; 36415; 74177; 80053; 81001; 83605; 83690; 84703; 85025; 96365; 96375; 99284; J2270; J2405; J2543; J3490; J7030; Q9967; 99285

== ENCOUNTER 2022-06-17 08:29 | Emergency (ER) | payer BC ==
[2022-06-17] MEDS ORDERED: Sodium Chloride 0.9% 1,000 ML IV ONE (09:38)
[2022-06-17] MEDS ORDERED: Sodium Chloride 0.9% 10 ML Syringe FLUSH PRN (09:38)
[2022-06-17] MEDS ORDERED: Sodium Chloride 0.9% 2.5 ML Syringe FLUSH PRN (09:38)
[2022-06-17] MEDS ORDERED: Ketorolac 30 MG/ML SDV IVPUSH ONE (09:40)
[2022-06-17 10:24] LABS: CARBON DIOXIDE,CO2 28.1 mmol/L (21.0-32.0); POTASSIUM,K 3.8 mmol/L (3.5-5.1)
[2022-06-17 10:47] VITALS: BP 127/80; PULSE 75
== END 2022-06-17 10:45 | disposition home or self-care (01) ==
LOC: MW.ED 08:29
DX: R07.89 Other chest pain (principal)
CPT/HCPCS: 36415; 71045; 80053; 84484; 85025; 85379; 93005; 96361; 96374; 99285; J1885; J3490; J7030

== ENCOUNTER 2022-07-19 12:04 | Emergency (ER) | payer BC ==
[2022-07-19] MEDS ORDERED: Sodium Chloride 0.9% 1,000 ML IV ONE (12:47)
[2022-07-19] MEDS ORDERED: Sodium Chloride 0.9% 10 ML Syringe FLUSH PRN (12:47)
[2022-07-19] MEDS ORDERED: Ondansetron 4 MG/2 ML SDV IVPUSH ONE ×2 (12:47→15:19)
[2022-07-19] MEDS ORDERED: Sodium Chloride 0.9% 2.5 ML Syringe FLUSH PRN (12:47)
[2022-07-19 13:26] LABS: CORONAVIRUS COVID-19 NAA NEGATIVE (NEGATIVE); INFLUENZA A NAA NEGATIVE (NEGATIVE); INFLUENZA B NAA NEGATIVE (NEGATIVE)
[2022-07-19 13:30] LABS: CARBON DIOXIDE,CO2 24.7 mmol/L (21.0-32.0); POTASSIUM,K 3.9 mmol/L (3.5-5.1)
[2022-07-19] MEDS ORDERED: Magnesium Sulfate/Water 2 GM in Premix Bag 1 BAG IV ONE (14:03)
[2022-07-19] MEDS ORDERED: Morphine 2 MG/ML SYRINGE IVPUSH ONE (16:26)
[2022-07-19 16:27] VITALS: BP 121/79; PULSE 68
[2022-07-19] MEDS ORDERED: Acetaminophen 325 MG Tab PO ONE (16:43)
== END 2022-07-19 17:10 | disposition home or self-care (01) ==
LOC: MW.ED 12:04
DX: O21.9 Vomiting of pregnancy, unspecified (principal); Z20.822 Contact with and (suspected) exposure to COVID-19
CPT/HCPCS: 0240U; 36415; 76705; 76817; 80053; 81001; 81025; 83690; 83735; 84702; 85025; 96361; 96365; 96366; 96375; 96376; 99284; A9270; J2405; J3475; J3490; J7030

== ENCOUNTER 2022-08-04 03:49 | Emergency (ER) | payer BC ==
[2022-08-04] MEDS ORDERED: Sodium Chloride 0.9% 1,000 ML IV ONE (04:03)
[2022-08-04 05:08] LABS: CARBON DIOXIDE,CO2 25.4 mmol/L (21.0-32.0)
[2022-08-04 05:37] LABS: CORONAVIRUS COVID-19 NAA NEGATIVE (NEGATIVE); INFLUENZA A NAA NEGATIVE (NEGATIVE); INFLUENZA B NAA NEGATIVE (NEGATIVE)
[2022-08-04 06:23] VITALS: BP 111/68; PULSE 70
== END 2022-08-04 06:21 | disposition home or self-care (01) ==
LOC: MW.ED 03:49
DX: O99.891 Other specified diseases and conditions complicating pregnancy (principal); R10.31 Right lower quadrant pain; R10.32 Left lower quadrant pain; O99.611 Diseases of the digestive system complicating pregnancy, first trimester; K21.9 Gastro-esophageal reflux disease without esophagitis; Z79.899 Other long term (current) drug therapy; Z3A.09 9 weeks gestation of pregnancy; Z20.822 Contact with and (suspected) exposure to COVID-19
CPT/HCPCS: 0240U; 36415; 76801; 80053; 81001; 83690; 83735; 84702; 85025; 96360; 99284; J7030; 99283

== ENCOUNTER 2023-02-16 06:16 | Inpatient (IN) | payer MEDICAID ==
[2023-02-16 07:18] LABS: BASOPHILS PERCENT AUTO 0.2 % (0.0-1.5); EOSINOPHILS ABSOLUTE AUTO 0.8 K/uL (0.0-0.7); EOSINOPHILS PERCENT AUTO 10.1 % (0.0-7.0); HEMATOCRIT 38.9 % (36.0-46.0); HEMOGLOBIN 13.1 g/dL (12.0-16.0); LYMPHOCYTES ABSOLUTE AUTO 2.4 K/uL (0.6-2.4); LYMPHOCYTES PERCENT AUTO 28.6 % (16.0-40.0); MEAN CORPUSCULAR HEMOGLOBIN 30.7 pg (27.0-32.0); MEAN CORPUSCULAR HGB CONC 33.7 g/dL (31.0-37.0); MEAN CORPUSCULAR VOLUME 91.1 fL (80.0-98.0); MONOCYTES ABSOLUTE AUTO 0.6 K/uL (0.0-0.8); MONOCYTES PERCENT AUTO 6.9 % (0.0-15.0); NEUTROPHILS ABSOLUTE AUTO 4.5 K/uL (1.4-5.7); NEUTROPHILS PERCENT AUTO 54.2 % (48.0-80.0); NRBC ABSOLUTE 0 K/uL; PLATELET COUNT,PLT 168 K/uL (150-400); RED BLOOD CELL COUNT 4.27 M/uL (4.30-5.90); WHITE BLOOD CELL COUNT,WBC 8.35 K/uL (4.0-11.0)
[2023-02-16 07:44] LABS: A/G RATIO 0.6 (0.9-1.6); ALBUMIN 2.2 g/dL (3.4-5.0); BILIRUBIN TOTAL 0.2 mg/dL (0.2-1.0); CALCIUM 8.5 mg/dL (8.5-10.1); CARBON DIOXIDE,CO2 22.7 mmol/L (21.0-32.0); CREATININE 1.4 mg/dL (0.6-1.0); EST CRCL DRUG DOSING (CG) 56.62 mL/min; POTASSIUM,K 3.9 mmol/L (3.5-5.1); PROTEIN TOTAL,TP 5.9 g/dL (6.4-8.2)
[2023-02-16] MEDS ORDERED: Phenylephrine 1% 10 MG/ML SDV ONE (11:29)
[2023-02-16] MEDS ORDERED: ceFAZolin 1 GM Vial ONE (11:29)
[2023-02-16] MEDS ORDERED: Oxytocin 10 Units/1 ML SDV ONE (11:31)
[2023-02-16] MEDS ORDERED: Dexamethasone 4 MG/ML 5 ML MDV ONE (11:33)
[2023-02-16] MEDS ORDERED: Ondansetron 4 MG/2 ML SDV ONE (11:33)
[2023-02-16] MEDS ORDERED: fentaNYL 100 MCG/2 ML SDV ONE (13:39)
[2023-02-16] MEDS ORDERED: Morphine PF 10 MG/10 ML SDV ONE (13:40)
[2023-02-16] MEDS ORDERED: Lidocaine 2% 5 ML SDV ONE (13:41)
[2023-02-16] MEDS ORDERED: Ketorolac 30 MG/ML SDV ONE (13:42)
[2023-02-16] MEDS ORDERED: Ropivacaine 0.5% 5 MG/ML 30 ML SDV ONE (13:46)
[2023-02-16] MEDS ORDERED: Tranexamic Acid 1,000 MG/10 ML Vial ONE (13:48)
[2023-02-16] MEDS ORDERED: Citric Acid/Sodium Citrate Solution 30 ML Cup PO ONE (15:17)
[2023-02-16] MEDS ORDERED: Sodium Chloride 0.9% 2.5 ML Syringe FLUSH PRN (15:17)
[2023-02-16] MEDS ORDERED: Sodium Chloride 0.9% 10 ML Syringe FLUSH PRN (15:17)
[2023-02-16] MEDS ORDERED: Sodium Chloride 0.9% 20 ML SDV IV PRN (15:17)
[2023-02-16] MEDS ORDERED: Lactated Ringers 1,000 ML IV SCH ×2 (15:30→18:00)
[2023-02-16] MEDS ORDERED: Oxytocin/0.9 % Sodium Chloride 30 UNIT/500 ML BAG IV SCH ×2 (15:30→18:00)
[2023-02-16] MEDS ORDERED: Ondansetron 4 MG/2 ML SDV IVPUSH PRN ×2 (15:58)
[2023-02-16] MEDS ORDERED: Morphine 2 MG/ML SYRINGE IVPUSH PRN (15:58)
[2023-02-16] MEDS ORDERED: droPERidol 5 MG/2 ML SDV IVPUSH PRN (15:58)
[2023-02-16] MEDS ORDERED: Acetaminophen/oxyCODONE 325-5 MG Tab PO PRN (15:58)
[2023-02-16] MEDS ORDERED: Albuterol 0.083% 2.5 MG/3 ML Neb Soln NEB PRN (15:58)
[2023-02-16] MEDS ORDERED: Naloxone 0.4 MG/ML SDV IVPUSH PRN (15:58)
[2023-02-16] MEDS ORDERED: fentaNYL 100 MCG/2 ML SDV IVPUSH PRN ×2 (15:58)
[2023-02-16] MEDS ORDERED: Metoclopramide 10 MG/2 ML SDV IVPUSH PRN (15:58)
[2023-02-16] MEDS ORDERED: HYDROmorphone 2 MG/ML Syringe IVPUSH PRN (15:58)
[2023-02-16] MEDS ORDERED: diphenhydrAMINE 50 MG/ML SDV IVPUSH PRN ×2 (15:58→17:48)
[2023-02-16] MEDS ORDERED: ePHEDrine 50 MG/ML SDV IVPUSH PRN (15:58)
[2023-02-16] MEDS ORDERED: Misoprostol 200 MCG Tab RECTAL PRN (17:48)
[2023-02-16] MEDS ORDERED: Methylergonovine 0.2 MG/1 ML Amp IM PRN (17:48)
[2023-02-16] MEDS ORDERED: Tranexamic Acid 1,000 MG in Sodium Chloride 0.9% 100 ML IV PRN (17:48)
[2023-02-16] MEDS ORDERED: Oxytocin 10 Units/1 ML SDV IM PRN (17:48)
[2023-02-16] MEDS ORDERED: Lanolin 100% Cream 7 GM Tube TOP PRN (17:48)
[2023-02-16] MEDS ORDERED: Bisacodyl 10 MG Supp RECTAL PRN (17:48)
[2023-02-16] MEDS: Docusate Sodium 100 MG Cap PO SCH (21:25)
[2023-02-16] MEDS: Acetaminophen 1,000 MG in Premix Bag 1 BAG IV PRN (21:28)
[2023-02-16] MEDS: Ketorolac 30 MG/ML SDV IVPUSH SCH (23:27)
[2023-02-17] MEDS: Ondansetron 4 MG/2 ML SDV IVPUSH PRN ×2 (01:22→06:28)
[2023-02-17] MEDS: Acetaminophen 1,000 MG in Premix Bag 1 BAG IV PRN (04:02)
[2023-02-17] MEDS: Ketorolac 30 MG/ML SDV IVPUSH SCH ×3 (06:04→18:54)
[2023-02-17 07:07] LABS: HEMATOCRIT 33.5 % (36.0-46.0); HEMOGLOBIN 11.3 g/dL (12.0-16.0)
[2023-02-17] MEDS: Docusate Sodium 100 MG Cap PO SCH ×2 (10:37→21:16)
[2023-02-18] MEDS: Ibuprofen 800 MG Tab PO PRN ×2 (04:34→16:20)
[2023-02-18] MEDS: Acetaminophen/oxyCODONE 325-5 MG Tab PO PRN ×3 (08:46→22:48)
[2023-02-18] MEDS: Docusate Sodium 100 MG Cap PO SCH ×2 (08:47→20:05)
[2023-02-19 07:18] VITALS: BP 125/90; PULSE 87
[2023-02-19] MEDS: Acetaminophen/oxyCODONE 325-5 MG Tab PO PRN (08:01)
[2023-02-19] MEDS: Docusate Sodium 100 MG Cap PO SCH (08:01)
[2023-02-19] MEDS ORDERED: droPERidol 5 MG/2 ML SDV IV ONE (10:43)
== END 2023-02-19 10:44 | disposition home or self-care (01) | DRG 788 ==
LOC: MW.OBCHECK 06:16 → MW.OB 06:17 → MW.MS 10:06 → MW.OB 10:08 → MW.OBCHECK 13:05 → MW.OB 13:05
PROVIDERS: ADMIT Obstetrics & Gynecology Obstetrics; ATTEND Obstetrics & Gynecology Obstetrics
PROC: 10D00Z1 Extraction of Products of Conception, Low, Open Approach (ICD-10-PCS; principal; 2023-02-16)
DX: O44.53 Low lying placenta with hemorrhage, third trimester (principal); Z3A.37 37 weeks gestation of pregnancy; Z37.0 Single live birth; O34.211 Maternal care for low transverse scar from previous cesarean delivery
CPT/HCPCS: 01961; 36415; 59025; 64488; 76819; 76819-26; 80053; 85014; 85018; 85025; 86592; 86850; 86900; 86901; A9270-GY; J0131; J0690; J1100; J1790; J1885; J2274; J2370; J2405; J2590; J2795; J3010; J3490; J7120

== ENCOUNTER 2024-04-24 18:13 | Emergency (ER) | payer OTHER ==
[2024-04-24] MEDS ORDERED: Sodium Chloride 0.9% 10 ML Syringe FLUSH PRN (18:39)
[2024-04-24] MEDS: Sodium Chloride 0.9% 1,000 ML IV ONE (19:26)
[2024-04-24] MEDS: Ondansetron 4 MG/2 ML SDV IVPUSH ONE (19:27)
[2024-04-24] MEDS: Morphine 2 MG/ML SYRINGE IVPUSH ONE (19:27)
[2024-04-24 19:53] LABS: BASOPHILS ABSOLUTE AUTO 0.02 K/uL (0.00-0.20); BASOPHILS PERCENT AUTO 0.2 % (0.0-1.0); EOSINOPHILS ABSOLUTE AUTO 0.49 K/uL (0.00-0.45); HEMATOCRIT 30.1 % (37.0-47.0); IMMATURE GRAN ABSOLUTE AUTO 0.03 K/uL (0.00-0.05); IMMATURE GRAN PERCENT AUTO 0.3 % (0.0-0.4); LYMPHOCYTES ABSOLUTE AUTO 1.27 K/uL (1.00-4.80); LYMPHOCYTES PERCENT AUTO 13.1 % (24.0-44.0); MEAN CORPUSCULAR HEMOGLOBIN 29.4 pg (28.0-32.0); MEAN CORPUSCULAR HGB CONC 33.2 g/dL (32.0-36.0); MEAN CORPUSCULAR VOLUME 88.5 fL (83.0-99.0); MEAN PLATELET VOLUME 11.3 fL (9.4-12.3); MONOCYTES ABSOLUTE AUTO 0.34 K/uL (0.00-0.80); MONOCYTES PERCENT AUTO 3.5 % (0.0-8.0); NEUTROPHILS ABSOLUTE AUTO 7.57 K/uL (1.80-7.70); NEUTROPHILS PERCENT AUTO 77.9 % (41.0-71.0); PLATELET COUNT,PLT 240 K/uL (150-400); WHITE BLOOD CELL COUNT,WBC 9.72 K/uL (3.9-11.3)
[2024-04-24 19:56] LABS: A/G RATIO 0.8 (0.9-1.6); ALANINE AMINOTRANSFERASE,ALT 20 IU/L (14-63); ALBUMIN 2.9 g/dL (3.4-5.0); ALKALINE PHOSPHATASE 74 U/L (46-116); ASPARTATE AMNIOTRANSFERASE,AST 28 IU/L (15-37); BILIRUBIN TOTAL 0.2 mg/dL (0.2-1.0); BLOOD UREA NITROGEN,BUN 13 mg/dL (7.0-18.0); CALCIUM 8.6 mg/dL (8.5-10.1); CARBON DIOXIDE,CO2 25.4 mmol/L (21.0-32.0); CHLORIDE,CL 106 mmol/L (98-107); CREATININE 1.3 mg/dL (0.6-1.0); GLUCOSE RANDOM 81 mg/dL (74-106); LIPASE 45 U/L (16-77); POTASSIUM,K 3.8 mmol/L (3.5-5.1); PROTEIN TOTAL,TP 6.6 g/dL (6.4-8.2); SODIUM,NA 142 mmol/L (136-145)
[2024-04-24 20:04] LABS: ESTIMATED GFR 56 mL/min (>60)
[2024-04-24 21:01] LABS: APPEARANCE,URINE CLEAR; BILIRUBIN,URINE NEGATIVE (NEGATIVE); COLOR,URINE YELLOW; GLUCOSE,URINE NEGATIVE (NEGATIVE); KETONES,URINE NEGATIVE (NEGATIVE); LEUKOCYTE ESTERASE,URINE NEGATIVE (NEGATIVE); NITRITE,URINE NEGATIVE (NEGATIVE); OCCULT BLOOD,URINE MODERATE (NEGATIVE); PROTEIN,URINE 100 mg/dL (NEGATIVE); UROBILINOGEN,URINE 0.2 EU/dL (<2.0)
[2024-04-24 21:11] VITALS: BP 118/72; PULSE 98
[2024-04-24 21:13] LABS: BACTERIA,URINE FEW (NEGATIVE); EPITHELIAL CELLS,URINE FEW (NONE-FEW)
== END 2024-04-24 21:12 | disposition home or self-care (01) ==
LOC: MW.ED 18:13
DX: O03.9 Complete or unspecified spontaneous abortion without complication (principal); Z79.899 Other long term (current) drug therapy; Z75.8 Other problems related to medical facilities and other health care
CPT/HCPCS: 36415; 76830; 80053; 81001; 83690; 84702; 84703; 85025; 96361; 96374; 96375; 99284; J2270; J2405; J7030

== ENCOUNTER 2024-04-26 06:40 | Day surgery (SDC) | payer OTHER ==
[2024-04-26 07:12] LABS: BASOPHILS ABSOLUTE AUTO 0.02 K/uL (0.00-0.20); BASOPHILS PERCENT AUTO 0.3 % (0.0-1.0); EOSINOPHILS ABSOLUTE AUTO 0.48 K/uL (0.00-0.45); EOSINOPHILS PERCENT AUTO 6.8 % (0.0-6.0); HEMOGLOBIN 8.8 g/dL (12.0-16.0); IMMATURE GRAN ABSOLUTE AUTO 0.02 K/uL (0.00-0.05); IMMATURE GRAN PERCENT AUTO 0.3 % (0.0-0.4); LYMPHOCYTES ABSOLUTE AUTO 1.64 K/uL (1.00-4.80); LYMPHOCYTES PERCENT AUTO 23.2 % (24.0-44.0); MEAN CORPUSCULAR HEMOGLOBIN 29.1 pg (28.0-32.0); MEAN CORPUSCULAR HGB CONC 33.8 g/dL (32.0-36.0); MEAN CORPUSCULAR VOLUME 86.1 fL (83.0-99.0); MEAN PLATELET VOLUME 10.7 fL (9.4-12.3); MONOCYTES PERCENT AUTO 8.5 % (0.0-8.0); NEUTROPHILS ABSOLUTE AUTO 4.31 K/uL (1.80-7.70); NEUTROPHILS PERCENT AUTO 60.9 % (41.0-71.0); PLATELET COUNT,PLT 226 K/uL (150-400); RED BLOOD CELL COUNT 3.02 M/uL (4.10-5.30); WHITE BLOOD CELL COUNT,WBC 7.07 K/uL (3.9-11.3)
[2024-04-26] MEDS: Lactated Ringers 1,000 ML IV SCH (07:18)
[2024-04-26] MEDS ORDERED: propofoL 50 ML ONE (07:29)
[2024-04-26] MEDS ORDERED: Propofol 200 MG/20 ML SDV ONE (07:29)
[2024-04-26] MEDS ORDERED: fentaNYL 250 MCG/5 ML SDV ONE (07:29)
[2024-04-26] MEDS ORDERED: Ondansetron 4 MG/2 ML SDV IVPUSH PRN (07:36)
[2024-04-26] MEDS ORDERED: Morphine 2 MG/ML SYRINGE IVPUSH PRN (07:36)
[2024-04-26] MEDS ORDERED: Phenylephrine HCl In 0.9% NaCl 1 MG/10 ML Syringe IVPUSH PRN (07:36)
[2024-04-26] MEDS ORDERED: fentaNYL 50 MCG/ML SDV IVPUSH PRN (07:36)
[2024-04-26] MEDS ORDERED: Naloxone 0.4 MG/ML SDV IVPUSH PRN (07:36)
[2024-04-26] MEDS ORDERED: Metoclopramide 10 MG/2 ML SDV IVPUSH PRN (07:36)
[2024-04-26] MEDS ORDERED: HYDROmorphone 1 MG/ML Syringe IVPUSH PRN (07:36)
[2024-04-26] MEDS ORDERED: Albuterol 0.083% 2.5 MG/3 ML Neb Soln NEB PRN (07:36)
[2024-04-26] MEDS ORDERED: Lidocaine 1% 20 ML MDV ONE (07:48)
[2024-04-26] MEDS ORDERED: ceFAZolin 2 GM Vial ONE (08:00)
[2024-04-26] MEDS ORDERED: Dexamethasone 4 MG/ML 5 ML MDV ONE (08:05)
[2024-04-26] MEDS ORDERED: Ondansetron 4 MG/2 ML SDV ONE (08:05)
[2024-04-26] MEDS ORDERED: Ketorolac 30 MG/ML SDV ONE (08:05)
[2024-04-26] MEDS ORDERED: Phenylephrine HCl In 0.9% NaCl 1 MG/10 ML Syringe ONE (08:20)
[2024-04-26] MEDS ORDERED: Misoprostol 200 MCG Tab ONE (08:25)
[2024-04-26] MEDS ORDERED: Tranexamic Acid 1,000 MG/10 ML Vial ONE (08:30)
[2024-04-26] MEDS ORDERED: Methylergonovine 0.2 MG/1 ML Amp ONE (08:36)
[2024-04-26 11:40] VITALS: BP 118/79; PULSE 70
== END 2024-04-26 10:55 | disposition home or self-care (01) ==
LOC: MW.SDS 06:40
PROVIDERS: ATTEND Obstetrics & Gynecology
DX: O03.4 Incomplete spontaneous abortion without complication (principal); K21.9 Gastro-esophageal reflux disease without esophagitis
CPT/HCPCS: 36415; 59812; 84703; 85025; 86850; 86900; 86901; A9270; C1729; J0131; J0690; J1100; J2371; J2405; J2704; J3010; J7120; 01965; J1885; J2210; J3490